=== PATIENT | female | born 1985 | race Caucasian/White ===

== ENCOUNTER 2018-12-24 12:02 | Inpatient (IN) | payer MEDICAID, OTHER ==
[2018-12-24 12:44] VITALS: BMI 28.5
[2018-12-24] MEDS ORDERED: Lactated Ringer's 1,000 ML IV ONE (12:57)
[2018-12-24] MEDS ORDERED: Penicillin G Potassium 5 MU in Sodium Chloride 0.9% 50 ML IVPB ONE (12:58)
[2018-12-24] MEDS ORDERED: Betamethasone Soluspan 30 mg/5mL Inj Susp IM ONE (12:58)
[2018-12-24] MEDS ORDERED: Oxytocin 30 UNIT 30 UNITS/500 ML BAG IV ONE ×2 (12:58→12:59)
[2018-12-24] MEDS ORDERED: OXYTOCIN/0.9 % NS 20 UNIT/1,000 ML BAG IV SCH (13:00)
[2018-12-24] MEDS ORDERED: Lactated Ringer's 1,000 ML IV SCH (13:00)
[2018-12-24] MEDS ORDERED: Penicillin G 5 Million Unit Vial IVPB ONE (13:10)
[2018-12-24] MEDS ORDERED: Lidocaine 1% Inj (20ml) IJ ONE (13:32)
[2018-12-24 13:38] LABS: BASO % 0.3 % (0.0-2.0); EOS # 0.2 K/uL (0.0-0.7); EOS % 1.3 % (0.0-4.0); HEMOGLOBIN 12.6 g/dL (12.0-16.0); LYMPH # 2.9 K/uL (1.0-4.3); LYMPH % 20.9 % (20.0-40.0); MEAN CELL VOLUME 93.9 fl (81.0-99.0); MEAN CORPUSCULAR HEMOGLOBIN 30.3 pg (27.0-31.0); MEAN CORPUSCULAR HGB CONC 32.2 g/dL (33.0-37.0); MEAN PLATELET VOLUME 9.8 fl (7.2-11.7); MONO % 7.3 % (0.0-10.0); NEUT # 9.8 K/uL (1.8-7.0); NEUT % 70.2 % (50.0-75.0); NRBC % 0.4 % (0.0-0.0); RBC 4.18 Mil/uL (3.80-5.20)
[2018-12-24] MEDS ORDERED: Lidocaine 2% Inj (20ml) IJ ONE (13:45)
[2018-12-24] MEDS ORDERED: Oxycodone/Acetaminophen 5/325 mg Tab PO PRN ×4 (14:49→20:51)
[2018-12-24] MEDS ORDERED: Benzocaine/Menthol SPRAY TOP PRN ×2 (14:49→20:51)
[2018-12-25 06:34] LABS: BASO % 0.1 % (0.0-2.0); HEMOGLOBIN 11.7 g/dL (12.0-16.0); LYMPH # 2.4 K/uL (1.0-4.3); LYMPH % 12.6 % (20.0-40.0); MEAN CELL VOLUME 93.9 fl (81.0-99.0); MEAN CORPUSCULAR HEMOGLOBIN 30.4 pg (27.0-31.0); MEAN CORPUSCULAR HGB CONC 32.4 g/dL (33.0-37.0); MEAN PLATELET VOLUME 9.7 fl (7.2-11.7); MONO # 1.4 K/uL (0.0-0.8); MONO % 7.7 % (0.0-10.0); NEUT % 79.6 % (50.0-75.0); NRBC % 0.2 % (0.0-0.0); RBC 3.85 Mil/uL (3.80-5.20); RED CELL DISTRIBUTION WIDTH 14.1 % (11.5-14.5); WHITE BLOOD COUNT 18.9 K/uL (4.8-10.8)
--- NOTE | 2018-12-25 09:07 | OBDS ---
DELIVERY PERSONNEL Delivery Doctor: Tarah Kramer MD Scrub Nurse: [place] Demonstrator: Pamela Paz RN Resident: DR. Scott MATERNAL INFORMATION Delivery Anesthesia: None Medications in Delivery: Pitocin 30 units Estimated Blood Loss (ml): 200 Placenta Cultured: No Maternal Complications: None Provider Comments: Normal spontaneous vaginal delivery. Patient delivered viable infant with Apgars of 9 and 9 at 1 and 5 minutes respectively. Patient d elivered via LOP position. Loose nuchal cord x1 reduced. No lacerations, perineum intact. Uterus f irm and appropriately hemostatic following delivery. Patient tolerated delivery and repair well. No complications. Estimated blood loss 200 cc. LABOR SUMMARY EDC: 01/18/2019 00:00 No. Babies in Womb: 1 Attempted: No Labor Anesthesia: None LABOR INFORMATION Reason for Induction: Not Applicable Onset of Labor: 12/24/2018 09:00 Complete Dilatation: 12/24/2018 12:20 Oxytocin: N/A Group B Beta Strep: Done, Result Unknown Antibiotics # of Doses: 1 Antibiotics Time of Last Dose: 1255 Steroids Given: Partial Course Reason Steroids Not Administered: Indication MEMBRANES Membranes Rupture Method: Artificial Rupture of Membranes: 12/24/2018 13:25 Length of Rupture (hrs): 0.80 Amniotic Fluid Color: Clear Amniotic Fluid Amount: Small Amniotic Fluid Odor: Normal STAGES OF LABOR Stage 1 hrs: 3 Stage 1 min: 20 Stage 2 hrs: 1 Stage 2 min: 53 Stage 3 hrs: 0 Stage 3 min: 7 Total Time in Labor hrs: 5 Total Time in Labor min: 20 VAGINAL DELIVERY Episiotomy: None Laceration Extension: N/A Laceration Type: None Laceration Repair: Not Applicable Initial Vag Sponge Count: 10 Final Vag Sponge Count: 10 Initial Vag Sharps Count: 0 Final Vag Sharps Count: 0 Sponge Count Correct: Yes Sharps Count Correct: N/A BABY A INFORMATION Delivery Date/Time: 12/24/2018 14:13 Method of Delivery: Vaginal Born in Route : No : N/A Forceps: N/A Vacuum Extraction: N/A Shoulder Dystocia : No SHOULDER DYSTOCIA BABY A Infant Delivery Date/Time: 12/24/2018 14:13 PRESENTATION/POSITION BABY A Presentation: Cephalic Cephalic Presentation: Vertex Breech Presentation: N/A PLACENTA INFORMATION BABY A Placenta Delivery Time : 12/24/2018 14:20 Placenta Method of Delivery: Spontaneous Placenta Status: Delivered SCORES BABY A Heart Rate 1 min: >100 bpm Resp Effort 1 min: Good Cry Reflex Irritability 1 min: Cough or Sneeze or Pulls Away Muscle Tone 1 min: Active Motion Color 1 min: Body [place], Extremities Blue Resuscitation Effort 1 min: Tactile Stimulation SCORE 1 MIN: 9 Heart Rate 5 min: >100 bpm Resp Effort 5 min: Good Cry Reflex Irritability 5 min: Cough or Sneeze or Pulls Away Muscle Tone 5 min: Active Motion Color 5 min: Body [place], Extremities Blue Resuscitation Effort 5 min: Tactile Stimulation SCORE 5 MIN: 9 INFORMATION BABY A Gestational Age at Delivery: 36.0 Gestational Status: Outcome : Liveborn Infant Condition : Stable Infant Sex: Male IDENTIFICATION/MEDS BABY A ID Band Number: [id number] ID Band Location: Left Leg; Left Arm WEIGHT/LENGTH BABY A Birthweight (gms): 3945 Infant Weight (lb): 8 Infant Weight (oz): 11 CORD INFORMATION BABY A No. Cord Vessels: 3 Nuchal Cord : Around Neck x1, Loose Cord pH Baby Arterial: 7.07 Cord Blood Taken: N/A Suction: None ASSESSMENT BABY A Complications: None Physical Findings at Delivery: Within Normal Limits Respirations: Appears Normal Meat Hostess/ALS Called : No Infant Care By: Yonatan/Kvng Transferred To: Remains with Mother
--- NOTE | 2018-12-25 11:10 | OBPPN ---
Datetime: 12/25/2018 06:37 PP Pain Prov: Within normal limits PP Nausea Prov: Denies PP Flatus Prov: Yes PP BM Prov: Yes PP Breasts Prov: Not Done PP Heart Prov: Normal PP Lungs Prov: Normal PP Abdomen/Uterus Prov: Normal PP Lochia Prov: Normal PP Vulva/Perineum Prov: Normal PP CVA Tenderness Prov: Normal PP Extremities Prov: Normal PP C/S Incision Prov: Not Applicable PP Progress Prov: Normal PP Impression Prov: Normal progression PP Plan Prov: Continue present management PP Progress Note Prov: S: 33 yo s/p on 12/24/18, PPD1. Pt was seen and examined at bed side this AM. No overnight events. Pain is minimal. Ambulating and tolerating PO diet without difficu lty. Breast feeding. Lochia < menses. +Flatus/+ BM. Denies dizziness, orthostatic changes, change in vision, palpitations, chest pain, fever, chills, diarrhea, nausea and vomiting. O: VS: Stable overnight GEN: NAD Cardio: S1S2, no murmurs Lungs: clear breath sounds b/l, no wheezing Abdomen: BS+, appropriate tenderness to palpation. Uterus is firm and at the level of the umbilic us. EXT: No edema, calves non-tender NEURO/PSYCH: AAOx3, no grossly focal deficits, preserved affect and mood. H/H: aCBC: 12.6/36 pCBC: pending Assessment/Plan: 33 yo s/p on 12/24/18, PPD1. Pt remains afebrile, tolerating pain. -Regular diet -Anticipating d/c on 12/26 -Continue with current management -Encourage and ambulating -Ibuprofen 600mg q6 for pain Corina Mullins, PGY1 Patient was seen with the resident I agree with the note IP PP Procedures: None Vital Signs Provider PP: Reviewed; Within Normal Limits
--- NOTE | 2018-12-26 08:14 | OBPPN ---
Datetime: 12/26/2018 06:29 PP Pain Prov: Within normal limits PP Nausea Prov: Denies PP Flatus Prov: Yes PP BM Prov: Yes PP Breasts Prov: Not Done PP Heart Prov: Normal PP Lungs Prov: Normal PP Abdomen/Uterus Prov: Normal PP Lochia Prov: Normal PP Vulva/Perineum Prov: Not Done PP CVA Tenderness Prov: Normal PP Extremities Prov: Normal PP C/S Incision Prov: Not Applicable PP Progress Prov: Normal PP Impression Prov: Normal progression PP Plan Prov: Continue present management PP Progress Note Prov: S: 33 yo s/p on 12/24/18, PPD2. Pt was seen and examined at bed side this AM. No overnight events. Pain is minimal. Ambulating and tolerating PO diet without difficu lty. Breast feeding. Lochia < menses. +Flatus/+ BM. Denies dizziness, orthostatic changes, change in vision, palpitations, chest pain, fever, chills, diarrhea, nausea and vomiting. O: VS: Stable overnight GEN: NAD Cardio: S1S2, no murmurs Lungs: clear breath sounds b/l, no wheezing Abdomen: BS+, appropriate tenderness to palpation. Uterus is firm and at the level of the umbilic us. EXT: No edema, calves non-tender NEURO/PSYCH: AAOx3, no grossly focal deficits, preserved affect and mood. H/H: aCBC: 12.6/36 pCBC: 11.7/36.2 Assessment/Plan: 33 yo s/p on 12/24/18, PPD2. Pt remains afebrile, tolerating pain. -Regular diet -Anticipating d/c on 12/26 -Continue with current management -Encourage and ambulating -Ibuprofen 600mg q6 for pain Ling Shrestha PGY1 The patient was seen with resident I agree with the note IP PP Procedures: None Vital Signs Provider PP: Reviewed; Within Normal Limits
--- NOTE | 2018-12-26 08:14 | OBDCSUM ---
Datetime: 12/26/2018 06:32 Discharged to, Provider: Home Follow up at, Provider: [facility] Disch Instr Activity: Normal activity Disch Instr Diet: Regular Discharge Instructions, Provider: Routine instructions given Discharge Diagnosis, Provider: Term Delivered Follow up in weeks, Provider: 6 weeks Disch Referrals: None Contraception discussed, Prov: Yes Disch Activity Restrictions: No exercising; No sexual activity; Nothing in vagina - [place], mina kmi howard Discharge Comment, Provider: 33 yo s/p of baby boy on 12/24/18 at 36+3 weeks EGA. : Male, Wt. 3945 gm, 9/9 Post- D/C Summary: No OB complications. No complications during post- period. Lochia i s less than menses. Pt able to pass flatus, voiding well and able to ambulate without difficulty. Adm its to one BM. Tolerating regular diet w/o N/V. Fundus firm below umbilicus level. Pt is hemodynamica lly stable (EBL 200cc). H/H: aCBC: 12.6/36; pCBC: 11.7/36.2 Discharge Instructions given to patient: Encourage PNV 1 tab po q/day Ibuprofen 600 mg 1 tab po prn q4-6 if moderate pain #30. NO REFILL. Ambulatory with caution, nothing per vagina/sex for 4 weeks, no heavy lifting, avoid stairs, if ex cessive bleeding or fever without relief from Tylenol go to ED Follow-up [facility] 6 weeks post- Ling Shrestha PGY1 The patient was seen with resident I agree with the note Contraception after Delivery: Undecided
[2018-12-26 19:35] VITALS: BP 126/67; PULSE 92; RESP 22; TEMP 98.1; O2SAT 17
== END 2018-12-26 13:30 | disposition home or self-care (01) | DRG 372 ==
LOC: H.EROB2 12:02 → H.L&D 12:50 → H.EROB2 13:50 → H.OB/GYN 17:11
PROVIDERS: ADMIT Obstetrics & Gynecology; ATTEND Obstetrics & Gynecology
PROC: 10E0XZZ Delivery of Products of Conception, External Approach (ICD-10-PCS; principal; 2018-12-24)
PROC: 4A1HXCZ Monitoring of Products of Conception, Cardiac Rate, External Approach (ICD-10-PCS; 2018-12-24)
DX: O24.425 Gestational diabetes mellitus in childbirth, controlled by oral hypoglycemic drugs (principal); Z3A.36 36 weeks gestation of pregnancy; Z37.0 Single live birth; O69.81X0 Labor and delivery complicated by cord around neck, without compression, not applicable or unspecified